=== PATIENT | female | born 1965 | race Caucasian/White ===

== ENCOUNTER 2019-10-03 05:12 | Day surgery (SDC) | payer OTHER ==
[2019-09-30 18:30] VITALS: BMI 29.5
--- NOTE | 2019-10-03 07:16 | HP ---
History & Physical Update - History History: No Change - Physical Physical: No Change - Assessment Assessment: No Change - Plan Plan: No Change (No change in HP)
[2019-10-03] MEDS ORDERED: ACETAMINOPHEN 325 MG TABLET (FP) PO PRN (07:17)
[2019-10-03] MEDS ORDERED: IBUPROFEN 400 MG TABLET (FP) PO PRN (07:17)
[2019-10-03] MEDS ORDERED: PROPOFOL 20 ML ONE ×2 (07:19)
[2019-10-03] MEDS ORDERED: DEXAMETHASONE SOD PHOSPHATE 4 MG/1 ML VIAL ONE (07:19)
[2019-10-03] MEDS ORDERED: MIDAZOLAM HCL 2 MG/2 ML SINGLE DOSE VIAL ONE (07:19)
[2019-10-03] MEDS ORDERED: SUCCINYLCHOLINE CHLORIDE 200 MG/10 ML SYRINGE ONE (07:22)
[2019-10-03] MEDS ORDERED: FERRIC SUBSULFATE 500 ML BOTTLE TP ONE (08:15)
--- NOTE | 2019-10-03 09:20 | OP ---
Operative Note - Note: Operative Date: 10/03/19 Pre-Operative Diagnosis: Cervical stenosis. Submucosal myoma. Endometrial polyp Operation: Hysteroscopic myomectomy. Suction DC. LEEP Findings: Endometrial polyp submucosal myoma Post-Operative Diagnosis: Same as Pre-op Surgeon: Alina Enamorado Anesthesia: General Estimated Blood Loss (mls): 50 Operative Report Dictated: Yes
[2019-10-03] MEDS ORDERED: IBUPROFEN 400 MG TABLET (FP) PO ONE (10:05)
[2019-10-03] MEDS ORDERED: ONDANSETRON 4 MG/2 ML VIAL IVPUSH PRN (11:00)
[2019-10-03 12:14] VITALS: BP 147/77; PULSE 63; TEMP 97
--- NOTE | 2019-10-03 14:39 | OP ---
DATE OF OPERATION: 10/03/2019 PREOPERATIVE DIAGNOSIS: Cervical stenosis, submucosal myoma, endometrial polyps. OPERATION: Hysteroscopic myomectomy, suction, dilation and curettage and loop electrosurgical excision procedure (LEEP). FINDINGS: Endometrial polyp and submucosal myoma. POSTOPERATIVE DIAGNOSIS: Cervical stenosis, submucosal myoma, endometrial polyps. SURGEON: Alina Enamorado MD ANESTHESIA: General. ESTIMATED BLOOD LOSS: 50 mL PROCEDURE: Patient was taken to the operating room, placed in dorsal lithotomy position, prepped and draped in the usual sterile fashion. A timeout was performed in accordance with hospital regulation. Speculum was placed in the vagina. Anterior lip of the cervix grasped with single-tooth tenaculum. A large LEEP cone was then performed due to inability to get into the cervix. The ectocervix was also done. Cervix would then dilate to accommodate the operative hysteroscope. Operative hysteroscope was inserted and cautery and cutting of the polyps and submucosal myoma were then done. Specimens were submitted to Pathology. This procedure was repeated several times until the endometrial cavity appeared to be clear and clean. All instruments were then removed. Cautery of the cervix was then done due to bleeding from the LEEP. All instruments were then removed. Estimated blood loss was 50 mL. ALINA ENAMORADO M.D. [id number] MTDD
--- NOTE | 2019-10-04 15:41 | PATH ---
Surgical Pathology Report Patient Name: SALAS MIRANDA [facility]. Rec. #: [id number] /Age/Gender: 1965 (Age: 53) / F Account: [id number] Location: [facility] SURGICAL Taken: 10/03/2019 Received: 10/03/2019 Reported: 10/04/2019 Physicians: Alina Enamorado M.D. Specimen(s) Received A: FIBROID AND POLYP B: ECTO AND ENDO CERVIX Clinical History Fibroid and polyps, cervical stenosis Final Diagnosis A. FIBROID AND POLYPS, HYSTEROSCOPIC MYOMECTOMY, POLYPECTOMY, SUCTION DILATION AND CURETTAGE: 2 G, FRAGMENTS OF FIBROMUSCULAR TISSUE CONSISTENT WITH SUBMUCOSAL LEIOMYOMA, ENDOMETRIAL POLYP, AND SCANT BENIGN CERVICAL SQUAMOUS MUCOSA. B. ECTO AND ENDOCERVIX, LOOP ELECTROSURGICAL EXCISION PROCEDURE (LEEP): BENIGN CERVICAL SQUAMOUS AND ENDOCERVICAL MUCOSA WITH SQUAMOUS METAPLASIA, ACUTE AND CHRONIC FOLLICULAR CERVICITIS. NO DYSPLASIA IDENTIFIED. Electronically Signed Elizabeth Brambila M.D. Gross Description A. Received in formalin labeled "fibroid and polyps," is a 2 g, 3.3 x 2.4 x 0.3 cm aggregate of phillips-pink tissue fragments. The formalin is filtered and the specimen is entirely submitted in 2 cassettes. B. Received in formalin labeled "ecto and endocervix," is a 1.3 cm in diameter phillips-yellow, unoriented portion of tissue, consistent with a cervical LEEP cone biopsy. The specimen displays a central os. The specimen is partially surfaced by a phillips-pink, shiny and glistening mucosa. The specimen is inked blue and serially sectioned. Separately received within the same container is a 2.8 x 0.5 x 0.2 cm phillips, irregular, unoriented portion of tissue. The specimen is inked blue and serially sectioned. The specimen is entirely submitted in 6 cassettes as follows: [id number] submitted cervical LEEP cone biopsy; [id number]-[id number] submitted separately received portion of tissue. /10/03/2019 saudi10/03/2019
== END 2019-10-03 12:00 | disposition home or self-care (01) ==
LOC: JASU-SURG 05:12
PROVIDERS: ATTEND Obstetrics & Gynecology
PROC: 0UBC7ZX Excision of Cervix, Via Natural or Artificial Opening, Diagnostic (ICD-10-PCS; principal; 2019-10-03 07:30)
PROC: 0UB98ZZ Excision of Uterus, Via Natural or Artificial Opening Endoscopic (ICD-10-PCS; 2019-10-03 07:30)
DX: N88.2 Stricture and stenosis of cervix uteri (principal); D25.0 Submucous leiomyoma of uterus; N84.0 Polyp of corpus uteri
CPT/HCPCS: 86850; 86900; 86901; 88305-TC; 88307-TC; 94760

== ENCOUNTER 2021-04-29 04:30 | Day surgery (SDC) | payer OTHER ==
[2021-04-24 15:28] VITALS: BMI 28.0
[2021-04-29] MEDS ORDERED: PROPOFOL 20 ML ONE ×2 (07:34)
[2021-04-29] MEDS ORDERED: MIDAZOLAM HCL 2 MG/2 ML SINGLE DOSE VIAL ONE (07:35)
[2021-04-29] MEDS ORDERED: BUPIVACAINE HCL/PF 0.5% (5MG/ML) 10 ML VIAL ONE (08:00)
[2021-04-29] MEDS ORDERED: LIDOCAINE HCL 1%, 10 MG/ML (20ML VIAL) ONE (08:00)
[2021-04-29] MEDS ORDERED: ceFAZolin 2 GRAM PREMIX BAG IVPB ONE (08:20)
[2021-04-29] MEDS ORDERED: BUPIVACAINE HCL/PF 0.5% (5MG/ML) 10 ML VIAL IJ ONE ×2 (08:27)
[2021-04-29] MEDS ORDERED: LIDOCAINE HCL 1%, 10 MG/ML (20ML VIAL) NR ONE ×3 (08:27)
[2021-04-29] MEDS ORDERED: oxyCODONE HCL 5 MG TABLET PO PRN (10:51)
[2021-04-29] MEDS ORDERED: ONDANSETRON 4 MG/2 ML VIAL IVPUSH PRN (10:51)
[2021-04-29] MEDS ORDERED: LACTATED RINGERS SOLUTION 1,000 ML IV SCH (11:00)
[2021-04-29 11:52] VITALS: BP 121/73; PULSE 79; TEMP 97.7
== END 2021-04-29 11:45 | disposition home or self-care (01) ==
LOC: JASU-SURG 04:30
PROVIDERS: ATTEND Orthopaedic Surgery
PROC: 0PSV04Z Reposition Left Finger Phalanx with Internal Fixation Device, Open Approach (ICD-10-PCS; principal; 2021-04-29 08:00)
DX: S62.617P Displaced fracture of proximal phalanx of left little finger, subsequent encounter for fracture with malunion (principal); X58.XXXD Exposure to other specified factors, subsequent encounter
CPT/HCPCS: 76000-TC-FY; 94760

== ENCOUNTER 2021-11-27 17:48 | Emergency (ER) | payer OTHER ==
[2021-11-27 17:59] VITALS: BP 118/87; PULSE 83; RESP 18; BMI 28.0
[2021-11-27] MEDS ORDERED: ONDANSETRON 4 MG/2 ML VIAL IVPUSH ONE (19:32)
[2021-11-27] MEDS ORDERED: ACETAMINOPHEN 1000 MG/100 ML BAG IVPB ONE (19:32)
[2021-11-27] MEDS ORDERED: SODIUM CHLORIDE 0.9% 500 ML INFUS.BAG IV ONE (19:32)
[2021-11-27] MEDS ORDERED: FAMOTIDINE 20 MG/50 ML IVPB 20 MG/50 ML MG IVPB ONE ×2 (19:32→19:53)
[2021-11-27] MEDS ORDERED: ONDANSETRON 4 MG/2 ML VIAL ONE (19:53)
[2021-11-27] MEDS ORDERED: ACETAMINOPHEN INJECTION 100 ML IVPB ONE (19:59)
[2021-11-27 20:26] LABS: BASO % 0.7 % (0-2.0); EOS % 2.2 % (0-4.5); HEMATOCRIT 33.4 % (32.4-45.2); HEMOGLOBIN 10.9 GM/dL (10.7-15.3); LYMPH % 29.4 % (8-40); MCH 27.1 pg (25.7-33.7); MCHC 32.6 g/dl (32.0-36.0); MEAN CELL VOLUME 83.3 fl (80-96); MEAN PLT VOLUME 8.6 fl (7.5-11.1); MONO % 6.4 % (3.8-10.2); NEUT % 61.3 % (42.8-82.8); PLATELET COUNT 202 10^3/uL (134-434); RBC 4.01 M/mm3 (3.60-5.2); RDW 14.7 % (11.6-15.6); WHITE BLOOD COUNT 5.2 K/mm3 (4.0-10.0)
[2021-11-27 20:37] LABS: ACTIVATED PTT 26.9 SECONDS (25.2-36.5)
[2021-11-27 20:44] LABS: CALCIUM 9.2 mg/dL (8.5-10.1)
[2021-11-27 20:45] LABS: ALBUMIN 3.4 g/dl (3.4-5.0); MAGNESIUM 2.1 mg/dL (1.8-2.4)
[2021-11-27 20:48] LABS: CREATININE 1.1 mg/dL (0.55-1.3)
[2021-11-27 20:49] LABS: BILIRUBIN,TOTAL 0.4 mg/dL (0.2-1)
[2021-11-27 21:04] LABS: INR 1.08 (0.83-1.09); PROTHROMBIN TIME (PATIENT) 12.4 SEC (9.7-13.0)
[2021-11-27 21:42] LABS: PH,URINE 5.5 (5.0-8.0); URINE APPEARANCE CLEAR; URINE BILIRUBIN NEGATIVE (NEGATIVE); URINE COLOR YELLOW; URINE GLUCOSE (UA) NEGATIVE (NEGATIVE); URINE KETONE NEGATIVE (NEGATIVE); URINE LEUK ESTERASE NEGATIVE (NEGATIVE); URINE NITRITE NEGATIVE (NEGATIVE); URINE PROTEIN TRACE (NEGATIVE); URINE UROBILINOGEN 0.2 mg/dL (0.2-1.0)
== END 2021-11-28 00:23 | disposition home or self-care (01) ==
LOC: JER 17:48
PROC: 3E0333Z Introduction of Anti-inflammatory into Peripheral Vein, Percutaneous Approach (ICD-10-PCS; principal; 2021-11-27)
PROC: 3E033GC Introduction of Other Therapeutic Substance into Peripheral Vein, Percutaneous Approach (ICD-10-PCS; 2021-11-27)
PROC: 3E033GC Introduction of Other Therapeutic Substance into Peripheral Vein, Percutaneous Approach (ICD-10-PCS; 2021-11-27)
DX: R10.32 Left lower quadrant pain (principal); R11.2 Nausea with vomiting, unspecified
CPT/HCPCS: 0241U-QW; 36415; 74176-TC; 80053; 81003; 82272; 83605; 83690; 83735; 85025; 85610; 85730; 87086; 93005; 93010; 99285-25

== ENCOUNTER 2022-04-10 11:47 | Observation (INO) | payer OTHER ==
[2022-04-10] MEDS ORDERED: SODIUM CHLORIDE 0.9% 500 ML INFUS.BAG IV ONE (12:39)
[2022-04-10] MEDS ORDERED: ACETAMINOPHEN 1000 MG/100 ML BAG IVPB ONE (12:39)
[2022-04-10] MEDS ORDERED: FAMOTIDINE 20 MG/50 ML IVPB 20 MG/50 ML MG IVPB ONE ×2 (12:39→12:46)
[2022-04-10] MEDS ORDERED: METOCLOPRAMIDE HCL INJECTION 10 MG/2 ML VIAL IVPUSH ONE (12:39)
[2022-04-10] MEDS ORDERED: MECLIZINE HCL 12.5 MG TABLET PO ONE (12:45)
[2022-04-10] MEDS ORDERED: ACETAMINOPHEN INJECTION 100 ML IVPB ONE (12:46)
[2022-04-10] MEDS ORDERED: METOCLOPRAMIDE HCL INJECTION 10 MG/2 ML VIAL ONE (12:46)
[2022-04-10] MEDS ORDERED: MECLIZINE HCL 12.5 MG TABLET ONE (13:17)
[2022-04-10 14:27] LABS: BLOOD UREA NITROGEN 26.9 mg/dL (7-18); CALCIUM 8.9 mg/dL (8.5-10.1)
[2022-04-10 14:28] LABS: ALBUMIN 3.5 g/dl (3.4-5.0)
[2022-04-10 14:30] LABS: CREATININE 1.2 mg/dL (0.55-1.3)
[2022-04-10 14:32] LABS: BILIRUBIN,TOTAL 0.4 mg/dL (0.2-1)
[2022-04-10 15:02] LABS: BASO % 0.8 % (0-2.0); EOS % 1.8 % (0-4.5); HEMATOCRIT 33.3 % (32.4-45.2); HEMOGLOBIN 10.9 GM/dL (10.7-15.3); LYMPH % 25.5 % (8-40); MCH 27.1 pg (25.7-33.7); MCHC 32.8 g/dl (32.0-36.0); MEAN CELL VOLUME 82.6 fl (80-96); MEAN PLT VOLUME 9.5 fl (7.5-11.1); MONO % 4.5 % (3.8-10.2); NEUT % 67.4 % (42.8-82.8); PLATELET COUNT 186 10^3/uL (134-434); RBC 4.03 M/mm3 (3.60-5.2); RDW 14.4 % (11.6-15.6); WHITE BLOOD COUNT 4.4 K/mm3 (4.0-10.0)
[2022-04-10] MEDS ORDERED: MECLIZINE HCL 25 MG TABLET (FP) PO ONE (15:02)
[2022-04-10] MEDS ORDERED: diazePAM CARPU-JECT 10 MG/2 ML DISP.SYRIN IVPUSH ONE (15:02)
[2022-04-10] MEDS ORDERED: MECLIZINE HCL 25 MG TABLET (FP) ONE (15:19)
[2022-04-10] MEDS ORDERED: diazePAM CARPU-JECT 10 MG/2 ML DISP.SYRIN ONE (15:19)
[2022-04-10] MEDS ORDERED: ONDANSETRON 4 MG/2 ML VIAL IVPUSH PRN (18:39)
[2022-04-10] MEDS ORDERED: MECLIZINE HCL 12.5 MG TABLET PO PRN ×2 (18:39→18:42)
[2022-04-10] MEDS: SODIUM CHLORIDE 0.45% 1,000 ML IV SCH (19:46)
[2022-04-11 06:46] LABS: BASO % 0.9 % (0-2.0); EOS % 2.3 % (0-4.5); HEMATOCRIT 31.8 % (32.4-45.2); HEMOGLOBIN 10.4 GM/dL (10.7-15.3); LYMPH % 39.4 % (8-40); MCHC 32.8 g/dl (32.0-36.0); MEAN CELL VOLUME 82.2 fl (80-96); MEAN PLT VOLUME 9.4 fl (7.5-11.1); MONO % 6.9 % (3.8-10.2); NEUT % 50.5 % (42.8-82.8); PLATELET COUNT 164 10^3/uL (134-434); RBC 3.86 M/mm3 (3.60-5.2); RDW 14.3 % (11.6-15.6)
[2022-04-11 07:16] LABS: CALCIUM 8.7 mg/dL (8.5-10.1)
[2022-04-11 07:17] LABS: BLOOD UREA NITROGEN 20.5 mg/dL (7-18)
[2022-04-11 07:19] LABS: CREATININE 1.1 mg/dL (0.55-1.3)
[2022-04-11 07:21] LABS: BILIRUBIN,TOTAL 0.5 mg/dL (0.2-1); TOT PROT 6.1 g/dl (6.4-8.2)
[2022-04-11 12:37] VITALS: BMI 26.6
[2022-04-11] MEDS ORDERED: ACETAMINOPHEN 500 MG TABLET (FP) PO PRN (13:32)
[2022-04-11 15:19] VITALS: RESP 20
[2022-04-11] MEDS: HEPARIN NA (PORCINE) 5,000 UNITS/ML 1ML VIAL SQ SCH (22:51)
[2022-04-12] MEDS: SODIUM CHLORIDE 0.45% 1,000 ML IV SCH ×2 (01:13→07:50)
[2022-04-12] MEDS: HEPARIN NA (PORCINE) 5,000 UNITS/ML 1ML VIAL SQ SCH (09:44)
[2022-04-12 11:20] VITALS: TEMP 98.5
[2022-04-12] MEDS ORDERED: amLODIPine BESYLATE 5 MG TABLET (FP) PO SCH (12:30)
[2022-04-12 12:41] VITALS: BP 151/87; PULSE 73
== END 2022-04-12 13:50 | disposition home or self-care (01) ==
LOC: JER 11:47 → UNDOADMOB 15:51 → JERBED 15:51 → INTOOBSV 15:51 → JERBED 04-11 10:49 → J8W 04-11 10:49
PROVIDERS: ADMIT Internal Medicine; ATTEND Internal Medicine
PROC: 3E033NZ Introduction of Analgesics, Hypnotics, Sedatives into Peripheral Vein, Percutaneous Approach (ICD-10-PCS; principal; 2022-04-11)
PROC: 3E033GC Introduction of Other Therapeutic Substance into Peripheral Vein, Percutaneous Approach (ICD-10-PCS; 2022-04-11)
PROC: 3E0337Z Introduction of Electrolytic and Water Balance Substance into Peripheral Vein, Percutaneous Approach (ICD-10-PCS; 2022-04-11)
DX: M32.9 Systemic lupus erythematosus, unspecified (principal); I13.10 Hypertensive heart and chronic kidney disease without heart failure, with stage 1 through stage 4 chronic kidney disease, or unspecified chronic kidney disease; E11.22 Type 2 diabetes mellitus with diabetic chronic kidney disease; N18.30 Chronic kidney disease, stage 3 unspecified; R42 Dizziness and giddiness; R11.2 Nausea with vomiting, unspecified; Z91.018 Allergy to other foods; K57.92 Diverticulitis of intestine, part unspecified, without perforation or abscess without bleeding
CPT/HCPCS: 36415; 70450-TC; 71045-TC-FY; 80053; 83690; 84443; 84484; 85025; 93005; 93010; 96361; 96365; 96375; 99285-25; C9803-CS; G0378; J1644; U0003; U0005